=== PATIENT | male | born 1985 | race Caucasian/White ===

== ENCOUNTER 2017-06-13 13:32 | Emergency (ER) | payer OTHER ==
[~2017-06-13] VITALS: Ht 182.9 cm; Wt 113.4 kg
[2017-06-13] MEDS ORDERED: GABAPENTIN300 M2 PO (14:13)
[2017-06-13] MEDS ORDERED: KLONOPIN1 M1 PO (14:13)
--- NOTE | 2017-06-13 14:15 | ED PSYCHIATRIC COMPLAINT ---
History of Present Illness General Chief Complaint: Psychiatric Related Complaint Stated Complaint: BIBA ?ANXIETY Source: patient Exam Limitations: no limitations Vital Signs & Intake/Output Vital Signs & Intake/Output SEE TRIAGE Triage Nurses Notes Reviewed? yes HPI: Patient presents for evaluation of a panic attack that occurred about 60 minutes ago while he was at his in-laws place. Patient states that he and his have lost their current apartment and they have been sleeping in different places temporarily. Patient states that he is out of his medications for anxiety and PTSD because he is transitioning between providers. He denies SI or HI. He spoke with his therapist yesterday and has an appointment again today at 3:00. He does not wish to see the crisis clinicians but simply wishes to have his medications until he can be re-seen at [facility]. Past History Travel History Traveled to [place] past 21 day No Medical History Any Pertinent Medical History? see below for history Psychiatric: anxiety, PTSD Surgical History Surgical History: non-contributory Psychosocial History What is your primary language Swiss Illicit Drug Use: denies illicit drug use Family History Hx Contributory? No Review of Systems Review of Systems Constitutional: Reports: no symptoms. EENTM: Reports: no symptoms. Respiratory: Reports: no symptoms. Cardiovascular: Reports: no symptoms. GI: Reports: no symptoms. Genitourinary: Reports: no symptoms. Musculoskeletal: Reports: no symptoms. Skin: Reports: no symptoms. Neurological/Psychological: Reports: see HPI. Hematologic/Endocrine: Reports: no symptoms. Immunologic/Allergic: Reports: no symptoms. All Other Systems: Reviewed and Negative Physical Exam Physical Exam General Appearance: SEE BELOW Neurological/Psychiatric: SEE BELOW Comments: Gen.: Well-nourished, well-developed, no acute respiratory distress. Head: Normocephalic, atraumatic. Eyes: Normal inspection bilaterally Ears: Normal inspection bilaterally Nose: Normal inspection Throat/mouth : Moist mucosa Neck: Supple, full range of motion, no goiter Lungs: Quiet respirations Back: Normal range of motion Extremities: Normal range of motion grossly, no cyanosis clubbing or edema of the upper extremities Neurologic: Cranial nerves grossly intact, speech is clear Skin: warm and dry Psychiatric: Calm, cooperative, no apparent delusions or hallucinations SAD PERSONS Done? patient not suicidal Progress Differential Diagnosis: ANXIETY, BIPOLAR DISORDER, ptsd, adhd Plan of Care: Continue current medications, follow up with [facility] Departure Departure Disposition: HOME OR SELF CARE Condition: Stable Clinical Impression Primary Impression: Anxiety Referrals: Patient Has No Primary Care Dr (PCP/Family) Additional Instructions: Klonopin and gabapentin as prescribed for anxiety/PTSD. Follow-up with your therapist today as scheduled and with the [facility] program as soon as possible. Please follow-up with your primary care physician for general medical evaluation next week. If you do not currently have a primary care physician then please contact the [facility] at the following phone number: . Return if any concerns or sudden worsening. Departure Forms: Customer Survey General Discharge Information Prescriptions: Current Visit Scripts Clonazepam (Klonopin) 1 TAB PO TID PRN ANXIETY #9 TAB Gabapentin 1 CAP PO TID PRN ANXIETY #21 CAP
== END 2017-06-13 14:51 ==
LOC: ERH 13:32
DX: F41.9 Anxiety disorder, unspecified (principal)

== ENCOUNTER 2017-06-15 03:46 | Emergency (ER) | payer OTHER ==
[~2017-06-15] VITALS: Ht 180.3 cm; Wt 136.1 kg
[~2017-06-15 03:46] MED LIST: GABAPENTIN300 M2 PO; KLONOPIN1 M1 PO
[2017-06-15 04:00] VITALS: BP 124/84
--- NOTE | 2017-06-15 04:27 | ED ANKLE/FOOT INJURY COMPLAINT ---
History of Present Illness General Chief Complaint: Foot or Ankle Injury Stated Complaint: SPRAINED ANKLE Source: patient, old records Exam Limitations: no limitations Vital Signs & Intake/Output Vital Signs & Intake/Output Vital Signs Date Time Temp Pulse Resp B/P B/P Pulse O2 O2 Flow FiO2 Mean Ox Delivery Rate 06/15 0400 98.8 102 20 124/84 96 Room Air Room Air Allergies Coded Allergies: ondansetron (From ZOFRAN ( HYDROCHLORIDE)) (Mild, HIVES 06/15/17) Reconcile Medications Clonazepam (Klonopin) 1 MG TABLET 1 TAB PO TID PRN ANXIETY Gabapentin 300 MG CAPSULE 1 CAP PO TID PRN ANXIETY Ibuprofen 600 MG TABLET 1 TAB PO Q6P PRN pain with food Triage Note: 31YO MALE TO TRIAGE W/CO R ANKLE PAIN AND SWELLING SP FALL TONITE . STATES HE "TWISTED IT THEN FELL" ALSO STATES HE IS VERY ANXIOUS AND HIS "ANXIETY MEDICINE CLONAZEPAM WAS STOLEN FROM HIS BAG AND HAS NOT HAD ANY TODAY" Triage Nurses Notes Reviewed? yes Occurred: just prior to arrival Duration: minute(s):, constant, continues in ED Timing: recent history Severity: moderate, severe Pain/Injury Location: Right: Ankle. Method of Injury: twisted Modifying Factors: Improves With: immobilization, rest. Worsens With: movement. Associated Symptoms: swelling, GCS 15 since, stiffness HPI: Prior to admission patient missed a step and twisted his right ankle. He complains of lateral swelling increased pain with weightbearing limited range of motion. He denies other injury fever chills nausea vomiting diarrhea abdominal pain chest pain shortness breath headache dysuria rash bleeding. Past History Travel History Traveled to [place] past 21 day No Medical History Any Pertinent Medical History? 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 No Review of Systems Review of Systems Constitutional: Reports: no symptoms. EENTM: Reports: no symptoms. Respiratory: Reports: no symptoms. Cardiovascular: Reports: no symptoms. GI: Reports: no symptoms. Genitourinary: Reports: no symptoms. Musculoskeletal: Reports: see HPI, joint pain. Skin: Reports: no symptoms. Neurological/Psychological: Reports: no symptoms. Hematologic/Endocrine: Reports: no symptoms. Immunologic/Allergic: Reports: no symptoms. All Other Systems: Reviewed and Negative Physical Exam Physical Exam General Appearance: well developed/nourished, mild distress Head: atraumatic, normal appearance Eyes: Bilateral: normal appearance, PERRL, EOMI. Ears, Nose, Throat: normal pharynx, normal ENT inspection, hearing grossly normal Neck: normal inspection, supple, full range of motion, no midline tenderness Cardiovascular/Respiratory: normal breath sounds, normal peripheral pulses, regular rate/rhythm, no respiratory distress Back: normal inspection, normal range of motion Leg/Knee/Thigh Left: normal range of motion, normal inspection Leg/Knee/Thigh Right: normal range of motion, normal inspection Ankle Left: normal inspection, normal range of motion Ankle Right: soft tissue tenderness, swelling, tenderness, limited range of motion Foot Left: normal inspection, normal range of motion Foot Right: normal inspection, normal range of motion Reflexes: 2+: knee (R), knee (L). Neuro/Vascular: normal motor function, normal sensation Tendon: normal tendon function Psychiatric: awake, alert, oriented x 3 Skin: intact, normal color, warm/dry Progress Differential Diagnosis: fracture, sprain, contusion Plan of Care: Orders Procedure Date/time Status Durable Medical Equipment 06/15 522 Active Diagnostic Imaging: Viewed by Me: Radiology Read. Discussed w/RAD: Radiology Read. Radiology Impression: no acute abnormality, no fracture, no dislocation Departure Departure Time of Disposition: 522 Disposition: HOME OR SELF CARE Condition: Stable Clinical Impression Primary Impression: Right ankle sprain Referrals: Easton WILSON,Luis Segura (PCP/Family) Departure Forms: Customer Survey General Discharge Information Prescriptions: Current Visit Scripts Ibuprofen 1 TAB PO Q6P PRN pain #30 TAB with food
--- NOTE | 2017-06-15 05:12 | RADIOLOGY REPORT ---
EXAMINATION: XR ANKLE, RIGHT CLINICAL INFORMATION: Missed stair rolling right ankle. COMPARISON: None TECHNIQUE: AP, lateral, and mortise views of the right ankle. FINDINGS: There is no acute fracture or dislocation. Alignment is anatomic. No ankle joint effusion. The soft tissues are unremarkable. Achilles heel spur. IMPRESSION: No fracture or malalignment.
[2017-06-15] MEDS ORDERED: IBUPROFEN600 M1 PO ×2 (05:24→05:42)
== END 2017-06-15 06:00 ==
LOC: ERH 03:46
DX: S93.401A Sprain of unspecified ligament of right ankle, initial encounter (principal); X58.XXXA Exposure to other specified factors, initial encounter; Y92.9 Unspecified place or not applicable; Y93.9 Activity, unspecified
CPT/HCPCS: 73610-RT

== ENCOUNTER 2017-06-24 23:11 | Emergency (ER) | payer OTHER ==
[~2017-06-24] VITALS: Ht 180.3 cm; Wt 127.0 kg
[~2017-06-24 23:11] MED LIST changes: +IBUPROFEN600 M1 PO
--- NOTE | 2017-06-25 00:34 | RADIOLOGY REPORT ---
EXAMINATION: XR ANKLE, RIGHT CLINICAL INFORMATION: Right ankle pain. Reinjury. COMPARISON: 06/15/2017 TECHNIQUE: AP, lateral, and mortise views of the right ankle. FINDINGS: There is no acute fracture or dislocation. The ankle mortise is congruent. No ankle joint effusion. The soft tissues are unremarkable. Hypertrophic spurring at the Achilles insertion to the calcaneus. IMPRESSION: No fracture or malalignment. Achilles heel spur.
--- NOTE | 2017-06-25 00:37 | ED GENERAL ADULT ---
History of Present Illness General Chief Complaint: General Adult Stated Complaint: R ANKLE PAIN, REINJURED, LIGHTHEADED,LEFT EARLIER Source: patient Exam Limitations: no limitations Vital Signs & Intake/Output Vital Signs & Intake/Output ED Intake and Output 06/26 0000 06/25 1200 Intake Total Output Total Balance Patient 280 lb Weight Weight Reported by Patient Measurement Method Allergies Coded Allergies: ondansetron (From ZOFRAN ( HYDROCHLORIDE)) (Mild, HIVES 06/15/17) Reconcile Medications Clonazepam (Klonopin) 1 MG TABLET 1 TAB PO TID PRN ANXIETY Gabapentin 300 MG CAPSULE 1 CAP PO TID PRN ANXIETY Ibuprofen 800 MG TABLET 1 TAB PO TID PRN pain Ibuprofen 600 MG TABLET 1 TAB PO Q6P PRN pain with food Meclizine HCl 25 MG TABLET 1 TAB PO TIDPRN vertigo Promethazine HCl 25 MG TABLET 1 TAB PO Q6P PRN nausea Triage Note: TRIAGE: PATIENT TO ER FORM HOME REPORTS SEEN HERE 1 WEEK AGO S/P MECHANICAL FALL W/ R ANKLE SPRAIN. PATIENT NOW REPORTING S/P ANOTHER MECHANICAL FALL TONIGHT W/ R ANKLE "POPPED," 6/10 PAIN TO R ANKLE. REPORTS SIONCE THEN "BOTTOM OF FOOT NUMB, UNABLE TO EAT, LIGHTHEADED AND DIZZY. FEEL LIKE I'M GOING TO PASS OUT." EKG IN PROGRESS, LABS IN PROGRESS. Triage Nurses Notes Reviewed? yes Onset: Gradual Duration: day(s): Timing: recent history Injury Environment: home HPI: 31 yo melaniaman h/o right ankle injury presents with right ankle pain after an injury and also with vertigo. He notes that "I stepped down and rolled my right ankle again... It really hurts and is difficult to walk." He notes also that when he moves his head, he feels "like the world is spinning. " He notes also mild nausea, without vomiting, diarrhea, chills, dysuria. He is otherwise well. Past History Travel History Traveled to [place] past 21 day No Medical History Any Pertinent Medical History? 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 No Review of Systems Review of Systems Constitutional: Reports: no symptoms. EENTM: Reports: no symptoms. Respiratory: Reports: no symptoms. Cardiovascular: Reports: no symptoms. GI: Reports: no symptoms. Genitourinary: Reports: no symptoms. Musculoskeletal: Reports: no symptoms. Skin: Reports: no symptoms. Neurological/Psychological: Reports: no symptoms. Hematologic/Endocrine: Reports: no symptoms. Immunologic/Allergic: Reports: no symptoms. All Other Systems: Reviewed and Negative Physical Exam Physical Exam General Appearance: well developed/nourished, mild distress Head: atraumatic, normal appearance Eyes: Bilateral: normal appearance, PERRL, EOMI, other (no nystagmus). Ears, Nose, Throat: normal pharynx, normal ENT inspection Neck: normal inspection, supple, full range of motion Respiratory: normal breath sounds, chest non-tender, no respiratory distress, quiet respiration, lungs clear Cardiovascular: regular rate/rhythm Gastrointestinal: normal bowel sounds, soft, non-tender Back: normal inspection, normal range of motion Extremities: normal inspection, normal capillary refill, no edema, mild pain with palpation of right lateral malleolus. pain elicited with inversion of right ankle. Neurologic/Psych: no motor/sensory deficits, awake, alert, oriented x 3, vertigo elicited with head movement. Core Measures ACS in differential dx? No CVA/TIA Diagnosis: No Sepsis Present: No Sepsis Focused Exam Completed? No Progress Differential Diagnoses I considered the following diagnoses in my evaluation of the patient: ankle sprain vs fx positional vertigo vs dehydration. Plan of Care: Orders Procedure Date/time Status TROPONIN LEVEL 06/24 2325 Complete COMPREHENSIVE METABOLIC PANEL 06/24 2325 Complete CBC WITHOUT DIFFERENTIAL 06/24 2325 Complete EKG 06/24 2325 Active Laboratory Tests 06/25/17 0031: Anion Gap 14, Estimated GFR > 60, BUN/Creatinine Ratio 13.3, Glucose 103 H, Calcium 9.5, Total Bilirubin 0.8, AST 26, ALT 35, Alkaline Phosphatase 73, Troponin I < 0.01, Total Protein 7.4, Albumin 4.3, Globulin 3.1, Albumin/ Globulin Ratio 1.4, CBC w Diff NO MAN DIFF REQ, RBC 5.21, MCV 84.4, MCH 28.6, MCHC 33.9, RDW 14.1, MPV 9.7, Gran % 74.0, Lymphocytes % 19.0 L, Monocytes % 6.0, Eosinophils % 0.9, Basophils % 0.1, Absolute Granulocytes 9.8 H, Absolute Lymphocytes 2.5, Absolute Monocytes 0.8 H, Absolute Eosinophils 0.1, Absolute Basophils 0 Diagnostic Imaging: Viewed by Me: Radiology Read. Discussed w/RAD: Radiology Read. Radiology Impression: PATIENT: JOSE TUBBS PRESENT AGE: 31 PATIENT ACCOUNT NO: [id number] : 86 LOCATION: ER ORDERING PHYSICIAN: Juancarlos Vang MD SERVICE DATE: 06/25/17 EXAM TYPE: RAD - XRY-ANKLE 3 OR MORE VIEWS R EXAMINATION: XR ANKLE, RIGHT CLINICAL INFORMATION: Right ankle pain. Reinjury. COMPARISON: 06/15/2017 TECHNIQUE : AP, lateral, and mortise views of the right ankle. FINDINGS: There is no acute fracture or dislocation. The ankle mortise is congruent. No ankle joint effusion. The soft tissues are unremarkable. Hypertrophic spurring at the Achilles insertion to the calcaneus. IMPRESSION: No fracture or malalignment. Achilles heel spur. 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 <Electronically signed in Other Vendor System> SIGNED BY: Goldy Joseph MD 06/25/1733 Initial ED EKG: normal axis, normal intervals, normal p-waves, normal QRS complex, normal sinus rhythm Departure Departure Disposition: HOME OR SELF CARE Condition: Stable Clinical Impression Primary Impression: Vertigo Secondary Impressions: Heel spur, Right ankle sprain Referrals: [facility]on WILSON,Luis Segura (PCP/Family) Departure Forms: Customer Survey General Discharge Information Prescriptions: Current Visit Scripts Ibuprofen 1 TAB PO TID PRN pain #30 TAB Meclizine HCl 1 TAB PO TIDPRN #30 TAB Promethazine HCl 1 TAB PO Q6P PRN nausea #8 TAB Critical Care Note Critical Care Note Critical Care Time: non-applicable
[2017-06-25 00:48] LABS: ABSOLUTE BASOPHIL COUNT 0 /CUMM (0.0-0.2); ABSOLUTE EOSINOPHIL COUNT 0.1 /CUMM (0.0-0.7); ABSOLUTE GRANULOCYTE CT 9.8 /CUMM (1.4-6.5); ABSOLUTE LYMPH COUNT 2.5 /CUMM (1.2-3.4); ABSOLUTE MONOCYTE COUNT 0.8 /CUMM (0.10-0.60); BASOPHIL % 0.1 % (0.0-2.0); EOSINOPHIL % 0.9 % (0-5); MEAN CORPUSCULAR HGB 28.6 PG (27.0-31.0); MEAN CORPUSCULAR HGB CONC 33.9 G/DL (33.0-37.0); MEAN CORPUSCULAR VOLUME 84.4 FL (80.0-94.0); MEAN PLATELET VOLUME 9.7 FL (7.4-10.4); PLATELET COUNT 248 /CUMM (130-400); RBC DISTRIBUTION WIDTH 14.1 % (11.5-14.5); RED BLOOD CELL CT 5.21 /CUMM (4.70-6.10); WHITE BLOOD CELL COUNT 13.2 /CUMM (4.8-10.8)
[2017-06-25] MEDS ORDERED: IBUPROFEN800 M1 PO ×2 (01:22→04:51)
[2017-06-25] MEDS ORDERED: MECLIZINE HCL25 MG PO ×2 (01:22→04:51)
[2017-06-25] MEDS ORDERED: PROMETHAZINE HC25 M3 PO ×2 (01:22→04:51)
[2017-06-25 05:46] VITALS: BP 107/62
== END 2017-06-25 05:57 ==
LOC: ERH 23:11
PROVIDERS: Pediatrics
DX: S93.401A Sprain of unspecified ligament of right ankle, initial encounter (principal); M77.31 Calcaneal spur, right foot; R42 Dizziness and giddiness; X50.9XXA Other and unspecified overexertion or strenuous movements or postures, initial encounter; Y93.89 Activity, other specified; Y92.009 Unspecified place in unspecified non-institutional (private) residence as the place of occurrence of the external cause
CPT/HCPCS: 73610-RT; 93005; 93010; J2405

== ENCOUNTER 2017-07-03 17:03 | Emergency (ER) | payer OTHER ==
[~2017-07-03] VITALS: Ht 180.3 cm; Wt 127.0 kg
[~2017-07-03 17:03] MED LIST changes: +IBUPROFEN800 M1 PO; +MECLIZINE HCL25 MG PO; +PROMETHAZINE HC25 M3 PO
[2017-07-03 18:34] LABS: ABSOLUTE BASOPHIL COUNT 0.1 /CUMM (0.0-0.2); ABSOLUTE EOSINOPHIL COUNT 0.1 /CUMM (0.0-0.7); ABSOLUTE GRANULOCYTE CT 12.6 /CUMM (1.4-6.5); ABSOLUTE LYMPH COUNT 1.7 /CUMM (1.2-3.4); ABSOLUTE MONOCYTE COUNT 0.6 /CUMM (0.10-0.60); BASOPHIL % 0.4 % (0.0-2.0); EOSINOPHIL % 0.4 % (0-5); GRANULOCYTE % 83.4 % (42.2-75.2); HEMATOCRIT 45.9 % (42-52); MEAN CORPUSCULAR HGB 28.3 PG (27.0-31.0); MEAN CORPUSCULAR HGB CONC 33.5 G/DL (33.0-37.0); MEAN CORPUSCULAR VOLUME 84.5 FL (80.0-94.0); MEAN PLATELET VOLUME 9.8 FL (7.4-10.4); PLATELET COUNT 273 /CUMM (130-400); RBC DISTRIBUTION WIDTH 13.7 % (11.5-14.5); RED BLOOD CELL CT 5.43 /CUMM (4.70-6.10); WHITE BLOOD CELL COUNT 15.1 /CUMM (4.8-10.8)
--- NOTE | 2017-07-04 00:05 | CT SCAN REPORT ---
EXAMINATION: CT ABDOMEN AND PELVIS WITH CONTRAST CLINICAL INFORMATION: Pelvic pain COMPARISON: None TECHNIQUE: Multidetector volumetric imaging was performed of the abdomen and pelvis following IV administration of 95 mL of Optiray 320 intravenous contrast. Sagittal and coronal reformatted images were obtained on the technologist's workstation. DLP: 1697 mGy-cm FINDINGS: LUNG BASES: There is slight pleural thickening at the lung bases. LIVER, GALLBLADDER, AND BILIARY TREE: The liver is normal in size, shape, and attenuation. No focal hepatic lesion or biliary ductal dilatation is present. The gallbladder is unremarkable with no evidence of radiopaque gallstones, gallbladder wall thickening, or obvious pericholecystic inflammatory changes. PANCREAS: The pancreas is normal in appearance SPLEEN: Spleen is normal in size with no focal finding ADRENAL GLANDS: Normal KIDNEYS AND URETERS: The kidneys are normal in size with symmetric enhancement There is an exophytic cyst measuring 1 cm arising from the midpole of the left kidney. No other mass is defined. There is no intrarenal calculus. There is no hydronephrosis or hydroureter. No ureteral stone is defined. BLADDER: The urinary bladder is unremarkable GASTROINTESTINAL TRACT: There is no evidence for large or small bowel obstruction or acute inflammation. The appendix is normal in appearance. There is no diverticulitis. There is no free air, free fluid or loculated fluid collection in the abdomen . The rectum is unremarkable in appearance ABDOMINAL WALL: No significant hernia is appreciated. There is some mildly prominent vascular structures in the anterior abdominal wall which extend from the left inguinal region to the scrotum. These may be related to a varicocele LYMPH NODES: No bulky adenopathy is seen VASCULAR: The abdominal aorta and inferior vena cava are normal in appearance PELVIC VISCERA: There is no mass seen in the pelvis. Prostate gland is normal in size and unremarkable in appearance. Seminal vesicles are unremarkable in appearance OSSEOUS STRUCTURES: No acute bony abnormality is seen. IMPRESSION: No acute abnormality is seen in the CT scan of the abdomen and pelvis. There is a 1 cm cyst midpole left kidney. There are some superficial vascular structures in the anterior abdominal wall extending from the left inguinal region to the scrotum which could possibly be related to varicocele. These are of questionable clinical significance.
--- NOTE | 2017-07-04 00:23 | ED GI/GU/ABDOMINAL COMPLAINT ---
History of Present Illness General Chief Complaint: General Adult Stated Complaint: "?PROSTATE PAIN FROM ANXIETY" Source: patient Exam Limitations: no limitations Vital Signs & Intake/Output Vital Signs & Intake/Output Vital Signs Date Time Temp Pulse Resp B/P B/P Pulse O2 O2 Flow FiO2 Mean Ox Delivery Rate 07/04 0816 98.0 80 18 134/86 98 Room Air 07/04 0653 97.7 89 16 115/62 100 Room Air 07/04 0143 98.3 89 18 109/60 98 Room Air 07/03 2219 98.4 109 20 132/78 96 Room Air 07/03 1740 98.1 106 15 148/75 96 Room Air Room Air ED Intake and Output 07/04 0000 07/03 1200 Intake Total 0 Output Total Balance 0 Intake, Oral 0 Patient 280 lb Weight Weight Reported by Patient Measurement Method Allergies Coded Allergies: ondansetron (From ZOFRAN ( HYDROCHLORIDE)) (Mild, HIVES 07/03/17) Triage Note: PT TO ED FOR C/C OF "MY PROSTATE IS HURTING. I HAVE A HISTORY OF PROSTATITIS AND IT FEELS THE SAME. AND PAIN AT THE TIP OF MY PENIS." PT DENIES S/S AND ABD PAIN. Triage Nurses Notes Reviewed? yes Onset: Abrupt Duration: day(s): (3-4) Timing: remote history Quality/Severity: cramping, fullness Severity Numbers: 7 Location: PERINEAL AREA Radiation: no radiation Activities at Onset: none Prior Abdominal Problems: similar symptoms Sexually Active: Yes No Modifying Factors: none Modifying Factors: Worsens With: movement, palpation, other (URINATING). Associated Symptoms: abdominal pain, PERINEAL PAIN, ANXIETY, DYSURIA HPI: 31-year-old male past medical history of anxiety and PTSD presents for evaluation of increasing anxiety and for evaluation of prostatitis. Patient states that he was diagnosed with prostatitis past 6 months ago he's having similar symptoms today. He has pain in his perineal area. This started a few days ago. Described as pressure. He describes some difficulty when urinating and dysuria. No penile discharge. He is sexually active. He states that he had similar symptoms about 6 months ago was treated with antibiotics and Flomax. He denies abdominal pain, fever, frequency urgency, diarrhea, back pain chest pain shortness of breath. He also reports he has been having worsening anxiety. He is in between doctors and has not yet followed up. He is also not taking any medication currently. He denies any drug or alcohol use no hallucinations no suicidal or homicidal ideation. He is here requesting a psychiatric evaluation. (Abel Orellana) Reconcile Medications Clonazepam (Klonopin) 1 MG TABLET 1 TAB PO TID PRN ANXIETY Dextroamphetamine/Amphetamine (Adderall 10 MG Tablet) 10 MG TABLET 1 TAB PO TID ANXIETY (Reported) Doxycycline Hyclate 100 MG TABLET 1 TAB PO BID PROSTATITIS Gabapentin 300 MG CAPSULE 1 CAP PO TID PRN ANXIETY Ibuprofen 800 MG TABLET 1 TAB PO TID PRN pain Ibuprofen 600 MG TABLET 1 TAB PO Q6P PRN pain with food Meclizine HCl 25 MG TABLET 1 TAB PO TIDPRN vertigo Promethazine HCl 25 MG TABLET 1 TAB PO Q6P PRN nausea (Madhuri WILSON,Maurice) Past History Travel History Traveled to [place] past 21 day No Medical History Any Pertinent Medical History? 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 No (Abel Orellana) Review of Systems Review of Systems Constitutional: Reports: no symptoms. EENTM: Reports: no symptoms. Respiratory: Reports: no symptoms. Cardiovascular: Reports: no symptoms. GI: Reports: no symptoms. Genitourinary: Reports: see HPI, dysuria, pain. Musculoskeletal: Reports: no symptoms. Skin: Reports: no symptoms. Neurological/Psychological: Reports: anxiety. Hematologic/Endocrine: Reports: no symptoms. Immunologic/Allergic: Reports: no symptoms. All Other Systems: Reviewed and Negative (Abel Orellana) Physical Exam Physical Exam General Appearance: well developed/nourished, no apparent distress, alert, awake , anxious Head: atraumatic, normal appearance Eyes: Bilateral: normal appearance, PERRL, EOMI. Ears, Nose, Throat, Mouth: hearing grossly normal, moist mucous membrane Neck: normal inspection, supple, full range of motion Respiratory: normal breath sounds, chest non-tender, no respiratory distress, lungs clear Cardiovascular: regular rate/rhythm, normal peripheral pulses Peripheral Pulses: 2+ radial (R), 2+ radial (L) Gastrointestinal: normal bowel sounds, soft, non-tender, no organomegaly Male Genitals: normal genitalia, NO SCROTAL SWELLING. nO TENDERNESS TO PALPATION OF THE BILATERAL TESTICLES. tHERE IS SOME TENDERNESS TO PALPATION OF THE PERINEAL AREA. nO ERYTHEMA AND NO FOCAL FLUCTUANT AREAS Back: normal inspection, normal range of motion, no vertebral tenderness, NO cva TENDERNESS Extremities: normal range of motion Neurologic/Psych: no motor/sensory deficits, awake, alert, oriented x 3, normal gait Skin: intact, normal color, warm/dry Core Measures ACS in differential dx? No Sepsis Present: No Sepsis Focused Exam Completed? No (Ziggy JORDAN,Abel) Progress Differential Diagnosis: appendicitis, biliary colic, cholecystitis, diverticulitis, epididymitis, orchitis, prostatitis, pyelonephritis, SBO, testicular torsion, ureterolithiasis, urinary retention, urethritis, UTI/pyelo Plan of Care: Orders Procedure Date/time Status Regular Diet 07/04 B Active Add-on Test (ER Only) 07/04 0113 Active CULTURE,URINE 07/04 0002 Active Add-on Test (ER Only) 07/03 2303 Active URINE DRUG SCREEN FOR ER ONLY 07/03 2303 Complete ED CRISIS PSYCH CONSULT 07/03 2303 Active ETHANOL 07/03 1813 Complete COMPREHENSIVE METABOLIC PANEL 07/03 1743 Complete CBC WITHOUT DIFFERENTIAL 07/03 1743 Complete CHLAMYDIA-GC DNA PROBE 07/03 1742 Active URINALYSIS 07/03 1741 Complete Current Medications Sig/Bernice Start time Last Medication Dose Stop Time Status Admin Lorazepam 1 MG Q6P PRN 07/04 0145 AC 07/04 (Ativan) 0151 Laboratory Tests 07/04/17 0002: Urine Opiates Screen < 100, Methadone Screen < 40, Barbiturate Screen < 60, Ur Phencyclidine Scrn < 6.00, Amphetamines Screen 104, U Benzodiazepines Scrn < 85, Urine Cocaine Screen < 50, Urine Cannabis Screen > 80.00 H, Urinalysis LIGHT H , Urine Color YEL, Urine Clarity CLEAR, Urine pH 6.5, Ur Specific [place] <= 1.005, Urine Protein NEG, Urine Ketones 40 H, Urine Nitrite NEG, Urine Bilirubin NEG, Urine Urobilinogen 0.2, Ur Leukocyte Esterase NEG, Ur Microscopic SEDIMENT EXAMINED, Urine RBC 1-3, Urine Hemoglobin TRACE-LYSED H, Urine Glucose NEG 07/03/171812: Anion Gap 14, Estimated GFR > 60, BUN/Creatinine Ratio 12.0, Glucose 95, Calcium 9.7, Total Bilirubin 0.9, AST 26, ALT 29, Alkaline Phosphatase 79, Total Protein 8.0, Albumin 4.8, Globulin 3.2, Albumin/Globulin Ratio 1.5, CBC w Diff NO MAN DIFF REQ, RBC 5.43, MCV 84.5, MCH 28.3, MCHC 33.5, RDW 13.7, MPV 9.8, Gran % 83.4 H, Lymphocytes % 11.5 L, Monocytes % 4.3, Eosinophils % 0.4, Basophils % 0.4, Absolute Granulocytes 12.6 H, Absolute Lymphocytes 1.7, Absolute Monocytes 0.6, Absolute Eosinophils 0.1, Absolute Basophils 0.1, Serum Alcohol < 10.0 Microbiology 07/04 1 URINE ROUT: Urine Culture - RECD 07/04 1 URINE ROUT: GC DNA Probe - RECD 07/04 1 URINE ROUT: Chlamydia DNA Probe (CINTHIA) - RECD Patient seen and evaluated. He is reporting pain in his perineal area. There is no evidence of erythema no focal fluctuant areas or discharge. He also reports dysuria and difficulty urinating. He is been diagnosed with prostatitis in the past. Feels like his current symptoms are similar. He is afebrile his abdomen is soft and nontender. He is able to urinate. CT scan, pelvis does not show any acute findings. He does have an elevated white blood cell count of 15, 000. Urine does not show signs of infection gonorrhea clarity testing ordered. Patient be covered with ceftriaxone and Zithromax for empiric treatment. He'll also be given a dose of Flomax. Patient was medicated with lorazepam in the emergency department for anxiety. He is requesting a psychiatric evaluation for further evaluation of intense anxiety. He is not suicidal or homicidal no hallucinations. Patient signout to Dr. Vang pending crisis evaluation Diagnostic Imaging: Viewed by Me: CT Scan. Discussed w/RAD: CT Scan. Radiology Impression: PATIENT: JOSE TUBBS PRESENT AGE: 31 PATIENT ACCOUNT NO: [id number] : 86 LOCATION: [facility] ORDERING PHYSICIAN: Abel JORDAN SERVICE DATE: 07/03/17 EXAM TYPE: CAT - CT ABD & PELVIS W IV CONTRAST EXAMINATION: CT ABDOMEN AND PELVIS WITH CONTRAST CLINICAL INFORMATION: Pelvic pain COMPARISON: None TECHNIQUE: Multidetector volumetric imaging was performed of the abdomen and pelvis following IV administration of 95 mL of Optiray 320 intravenous contrast. Sagittal and coronal reformatted images were obtained on the technologist's workstation. DLP: 1697 mGy-cm FINDINGS: LUNG BASES: There is slight pleural thickening at the lung bases. LIVER, GALLBLADDER, AND BILIARY TREE: The liver is normal in size, shape, and attenuation. No focal hepatic lesion or biliary ductal dilatation is present. The gallbladder is unremarkable with no evidence of radiopaque gallstones, gallbladder wall thickening, or obvious pericholecystic inflammatory changes. PANCREAS: The pancreas is normal in appearance SPLEEN: Spleen is normal in size with no focal finding ADRENAL GLANDS: Normal KIDNEYS AND URETERS: The kidneys are normal in size with symmetric enhancement There is an exophytic cyst measuring 1 cm arising from the midpole of the left kidney. No other mass is defined. There is no intrarenal calculus. There is no hydronephrosis or hydroureter. No ureteral stone is defined. BLADDER: The urinary bladder is unremarkable GASTROINTESTINAL TRACT: There is no evidence for large or small bowel obstruction or acute inflammation. The appendix is normal in appearance. There is no diverticulitis. There is no free air, free fluid or loculated fluid collection in the abdomen . The rectum is unremarkable in appearance ABDOMINAL WALL: No significant hernia is appreciated. There is some mildly prominent vascular structures in the anterior abdominal wall which extend from the left inguinal region to the scrotum. These may be related to a varicocele LYMPH NODES : No bulky adenopathy is seen VASCULAR: The abdominal aorta and inferior vena cava are normal in appearance PELVIC VISCERA: There is no mass seen in the pelvis. Prostate gland is normal in size and unremarkable in appearance. Seminal vesicles are unremarkable in appearance OSSEOUS STRUCTURES: No acute bony abnormality is seen. IMPRESSION: No acute abnormality is seen in the CT scan of the abdomen and pelvis. There is a 1 cm cyst midpole left kidney. There are some superficial vascular structures in the anterior abdominal wall extending from the left inguinal region to the scrotum which could possibly be related to varicocele. These are of questionable clinical significance. DICTATED BY: Fariba Almanzar MD DATE/TIME DICTATED:07/03/172350 SENIOR PACKAGING ENGINEER: OFE DATE/TIME TRANSCRIBED:07/03/172350 CONFIDENTIAL, DO NOT COPY WITHOUT APPROPRIATE AUTHORIZATION. Initial ED EKG: none (Abel Orellana) Hand-Off Endorsed To: Maurice Dhaliwal MD Endorsed Time: 0700 Pending: consult, other (crises) (Juancarlos Vang MD) Comments: Patient declines waitng for crisis evaluation. (Maurice Dhaliwal MD) Departure Departure Condition: Stable Clinical Impression Primary Impression: Perineal pain Secondary Impressions: Anxiety Referrals: Luis Mccormack MD, V. (PCP/Family) Departure Forms: Customer Survey General Discharge Information (Abel Orellana) Departure Prescriptions: Current Visit Scripts Doxycycline Hyclate 1 TAB PO BID #20 TAB PA/OUTSOLE MOLDER Co-Sign Statement Statement: ED Attending supervision documentation- [x] I saw and evaluated the patient. I have also reviewed all the pertinent lab results and diagnostic results. I agree with the findings and the plan of care as documented in the PA's/OUTSOLE MOLDER's documentation. [] I have reviewed the ED Record and agree with the PA's/OUTSOLE MOLDER's documentation. [] Additions or exceptions (if any) to the PAs/OUTSOLE MOLDER's note and plan are summarized below: [] (Juancarlos Vang MD) Departure Time of Disposition: 1007 Disposition: HOME OR SELF CARE PA/OUTSOLE MOLDER Co-Sign Statement Statement: ED Attending supervision documentation- x I saw and evaluated the patient. I have also reviewed all the pertinent lab results and diagnostic results. I agree with the findings and the plan of care as documented in the PA's/OUTSOLE MOLDER's documentation. [] I have reviewed the ED Record and agree with the PA's/OUTSOLE MOLDER's documentation. [] Additions or exceptions (if any) to the PAs/OUTSOLE MOLDER's note and plan are summarized below: [] (Maurice Dhaliwal MD)
[2017-07-04] MEDS ORDERED: DOXYCYCLINE HY100 M4 PO (01:51)
[2017-07-04] MEDS ORDERED: ADDERALL 10 MG10 MG PO (10:13)
[2017-07-04] MEDS ORDERED: ZOLOFT100 M1 PO (10:14)
[2017-07-04] MEDS ORDERED: VALIUM10 M1 PO (10:14)
[2017-07-04] MEDS ORDERED: FLOMAX0.4 M1 PO (10:20)
[2017-07-04] MEDS ORDERED: BACTRIM DS TAB1 EACH PO (10:20)
[2017-07-04 10:27] VITALS: BP 146/72
== END 2017-07-04 10:29 ==
LOC: ERH 17:03
PROVIDERS: Physician Assistant Medical
DX: R10.2 Pelvic and perineal pain (principal); F41.9 Anxiety disorder, unspecified
CPT/HCPCS: 74177; 80307; 81001; 87086; 87491; 87591; 96361; 96374; 96375; G0480; J0696; J1885

== ENCOUNTER 2017-07-03 21:20 | Emergency (ER) | payer OTHER ==
[2017-07-04] MEDS ORDERED: DOXYCYCLINE HY100 M4 PO (01:51)
[2017-07-04] MEDS ORDERED: ADDERALL 10 MG10 MG PO (10:13)
[2017-07-04] MEDS ORDERED: VALIUM10 M1 PO (10:14)
[2017-07-04] MEDS ORDERED: ZOLOFT100 M1 PO (10:14)
[2017-07-04] MEDS ORDERED: BACTRIM DS TAB1 EACH PO (10:20)
[2017-07-04] MEDS ORDERED: FLOMAX0.4 M1 PO (10:20)
[2017-07-19] MEDS ORDERED: KLONOPIN1 M1 PO (12:03)
[2017-07-28] MEDS ORDERED: PERCOCET 5-3251 EACH PO (21:37)
[2017-08-15] MEDS ORDERED: BUTALB-ACETAMI1 EACH PO (04:21)
[2017-09-03] MEDS ORDERED: REGLAN10 M1 PO (14:15)
[2017-09-03] MEDS ORDERED: ENDOCET 5-3251 EACH PO (14:15)
[2017-09-25] MEDS ORDERED: ADVIL LIQUI-GE200 M1 PO (16:31)
[2017-09-25] MEDS ORDERED: ATIVAN1 M1 PO (17:30)
[2017-09-25] MEDS ORDERED: REGLAN10 M1 PO (17:30)
== END 2017-07-03 21:45 | disposition admitted as inpatient to this hospital (09) ==
LOC: ERH 21:20
DX: R10.2 Pelvic and perineal pain (principal); F41.9 Anxiety disorder, unspecified

== ENCOUNTER 2017-07-09 11:27 | Emergency (ER) | payer OTHER ==
[~2017-07-09] VITALS: Ht 180.3 cm; Wt 127.0 kg
[~2017-07-09 11:27] MED LIST changes: +ADDERALL 10 MG10 MG PO; +BACTRIM DS TAB1 EACH PO; +DOXYCYCLINE HY100 M4 PO; +FLOMAX0.4 M1 PO; +VALIUM10 M1 PO; +ZOLOFT100 M1 PO
--- NOTE | 2017-07-09 11:59 | ED GI/GU/ABDOMINAL COMPLAINT ---
History of Present Illness General Chief Complaint: Male Genitourinary Problems Stated Complaint: DX PROSTATITIS, NO IMPROVMENT Source: patient, old records Exam Limitations: no limitations Vital Signs & Intake/Output Vital Signs & Intake/Output Vital Signs Date Time Temp Pulse Resp B/P B/P Pulse O2 O2 Flow FiO2 Mean Ox Delivery Rate 07/09 1413 98.0 74 16 127/65 94 Room Air 07/09 1306 97.0 70 18 107/61 94 Room Air 07/09 1231 144/70 07/09 1145 98.2 102 18 150/81 98 Room Air Allergies Coded Allergies: ondansetron (From ZOFRAN ( HYDROCHLORIDE)) (Mild, HIVES 07/03/17) Reconcile Medications [0] 0 henrique villanueva was seen in this er on 07/09/17; and is unable to walk long distances Clonazepam (Klonopin) 1 MG TABLET 1 TAB PO TID PRN ANXIETY Clotrimazole/Betamethasone Dip (Clotrimazole-Betamethasone Crm) 1 %-0.05 % CREAM..G. 1 DENILSON TOP BID balanitis apply to affected area(s) Dextroamphetamine/Amphetamine (Adderall 10 MG Tablet) 10 MG TABLET 1 TAB PO TID ADHD (Reported) Diazepam (Valium) 10 MG TABLET 1 TAB PO BIDP PRN ANXIETY (Reported) Gabapentin 300 MG CAPSULE 1 CAP PO TID PRN ANXIETY Ibuprofen 800 MG TABLET 1 TAB PO TID PRN pain Oxycodone HCl/Acetaminophen (Percocet 5-325 MG Tablet) 5 MG-325 MG TABLET 1 TAB PO BID PRN pain Sertraline HCl (Zoloft) 100 MG TABLET 1 TAB PO DAILY PTSD (Reported) Sulfamethoxazole/Trimethoprim (Bactrim Ds Tablet) 800 MG-160 MG TABLET 1 TAB PO BID prostatitis Tamsulosin HCl (Flomax) 0.4 MG CAP.ER.24H 1 CAP PO DAILY prostatitis Triage Note: PT TO ER C/C WORSENING SYMPTOMS S/P PROSTATITIS DIAGNOSIS 1 WEEK AGO. CURRENTLY TAKING MOTRIN, FLOMAX AND BACTRIM PRESCRIBED. AFEBILE. +DYSURIA. PT C/O BURNING/ITCHING TO PENIS. Triage Nurses Notes Reviewed? yes Onset: Abrupt Duration: week(s): (1), constant Timing: recent history Quality/Severity: aching, burning Severity Numbers: 7 Location: suprapubic, urethral Radiation: no radiation Activities at Onset: none Prior Abdominal Problems: similar symptoms No Modifying Factors: none Associated Symptoms: denies HPI: 31-year-old male with history of anxiety PTSD previous prostatitis presents the ER for evaluation complaining of persistent symptoms attributed to his prostatitis. He was here 5 days ago for the same is currently taking Bactrim Motrin Flomax. He reports no dysuria urgency frequency as well as itching to the tip of his penis. He denies any discharge hematuria or blood with ejaculation. His last episode of prostatitis was about 6 months ago for which he is on antibiotics and resolved. He denies abdominal pain nausea vomiting back pain fever or chills at home Past History Travel History Traveled to [place] past 21 day No Medical History Any Pertinent Medical History? 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 No Review of Systems Review of Systems Constitutional: Reports: see HPI. Comments Review of systems: See HPI, All other systems negative. Constitutional, no chills no fever, HEENT: no sore throat no congestion Cardiovascular: No chest pain Skin: no rashes, no change in skin Respiratory: No dyspnea no cough no sputum GI: No nausea no vomiting, no diarrhea, no bloating/constipation : see hpi Muscle skeletal: No joint pain, no back pain Neurologic: , no headache Heme/endocrine: No bruising Physical Exam Physical Exam General Appearance: well developed/nourished, no apparent distress, alert Gastrointestinal: soft Comments: Well-developed well-nourished person in no acute distress HEENT: Normal EENT exam; PERRL, EOMI, HEAD is atraumatic. moist mucous membranes. Neck: Supple, normal range of motion Back: Nontender, no CVA tenderness. Full range of motion Cardiovascular: Regular rate and rhythms no murmurs rub Respiratory: Chest nontender.There were no bony deformities, no asymmetry. No respiratory distress. Patient speaking in full complete sentences. Breath sounds clear to auscultation bilaterally: NO W/R/R Abdomen: Soft, obese nontender nondistended, no appreciable organomegaly. Normal bowel sounds. No rebound/guarding, No appreciable enlargement of the abdominal aorta, No ascites. Male : Normal external genitalia, testes nontender. No scrotal swelling or mases, No lesions/discharge. no rash, pernieum is soft, nonteder, no swelling no erythema, no induration or fluctuance Extremity: No edema, full range of motion of extremities Neuro: Alert oriented x3, motor sensory normal, There were no obvious focal neurologic abnormalities. Skin: No appreciable rash on exposed skin, skin is warm and dry. Psych: Mood and affect is normal, memory and judgment is normal. Core Measures ACS in differential dx? No Sepsis Present: No Sepsis Focused Exam Completed? No Progress Differential Diagnosis: epididymitis, prostatitis, pyelonephritis, STD, urethritis, UTI/pyelo Plan of Care: Orders Procedure Date/time Status Regular Diet 07/09 D Active CULTURE,URINE 07/09 1206 Active BLOOD CULTURE 07/09 1206 Active URINALYSIS 07/09 1206 Complete COMPREHENSIVE METABOLIC PANEL 07/09 1206 Complete CBC WITHOUT DIFFERENTIAL 07/09 1206 Complete Laboratory Tests 07/09/17 1300: Urinalysis LIGHT H, Urine Color YEL, Urine Clarity CLEAR, Urine pH 6.0, Ur Specific [place] 1.025, Urine Protein NEG, Urine Ketones NEG, Urine Nitrite NEG, Urine Bilirubin NEG, Urine Urobilinogen 0.2, Ur Leukocyte Esterase NEG, Ur Microscopic SEDIMENT EXAMINED, Urine RBC 3-5, Urine WBC 1-3 H, Ur Epithelial Cells RARE, Urine Bacteria RARE H, Urine Mucus MANY H, Urine Hemoglobin TRACE- LYSED H, Urine Glucose NEG 07/09/17 1215: Anion Gap 9, Estimated GFR > 60, BUN/Creatinine Ratio 12.2, Glucose 88, Calcium 9.2, Total Bilirubin 0.5, AST 22, ALT 28, Alkaline Phosphatase 69, Total Protein 6.9, Albumin 4.0, Globulin 2.9, Albumin/Globulin Ratio 1.4, CBC w Diff NO MAN DIFF REQ, RBC 4.88, MCV 84.2, MCH 29.1, MCHC 34.6, RDW 13.9, MPV 9.5, Gran % 75.2, Lymphocytes % 16.4 L, Monocytes % 5.5, Eosinophils % 2.6, Basophils % 0.3 , Absolute Granulocytes 9.5 H, Absolute Lymphocytes 2.1, Absolute Monocytes 0.7 H, Absolute Eosinophils 0.3, Absolute Basophils 0 Microbiology 07/09 1300 URINE ROUT: Urine Culture - RECD 07/09 1230 BLOOD: Blood Culture - RECD 07/09 1215 BLOOD: Blood Culture - RECD Old records including the patient's CAT scan from earlier this week was reviewed labs were reviewed. Medicated with morphine IV IV fluids. Patient's urine culture and GC swabs were reviewed which were both showing no growth Case discussed with Dr. Farmer agrees with plan I discussed with the patient at length his labs plan of care, patient is nontoxic appearing afebrile I discussed with him need and importance of close follow-up with urology. Return precautions were discussed at length he feels comfortable plan cleared for discharge Initial ED EKG: none Departure Departure Time of Disposition: 1401 Disposition: HOME OR SELF CARE Condition: Stable Clinical Impression Primary Impression: Acute prostatitis Referrals: John WILSON,Vikram Unknown (PCP/Family) Additional Instructions: Follow up with urologist dr mary tomorrow. continue taking the doxycycline antibiotic as prescribed. percocet for breakthrough pain- this is a narcotic and can make you drowsy. clotrimazole cream as discussed. continue taking the flomax as directed. return with any concerns Departure Forms: Customer Survey General Discharge Information Prescriptions: Current Visit Scripts Clotrimazole/Betamethasone Dip (Clotrimazole-Betamethasone Crm) 1 DENILSON TOP BID #15 GM apply to affected area(s) Oxycodone HCl/Acetaminophen (Percocet 5-325 MG Tablet) 1 TAB PO BID PRN pain #10 TAB [0] 0
[2017-07-09 12:58] LABS: ABSOLUTE BASOPHIL COUNT 0 /CUMM (0.0-0.2); ABSOLUTE EOSINOPHIL COUNT 0.3 /CUMM (0.0-0.7); ABSOLUTE GRANULOCYTE CT 9.5 /CUMM (1.4-6.5); ABSOLUTE LYMPH COUNT 2.1 /CUMM (1.2-3.4); ABSOLUTE MONOCYTE COUNT 0.7 /CUMM (0.10-0.60); BASOPHIL % 0.3 % (0.0-2.0); EOSINOPHIL % 2.6 % (0-5); GRANULOCYTE % 75.2 % (42.2-75.2); HEMATOCRIT 41.1 % (42-52); MEAN CORPUSCULAR HGB 29.1 PG (27.0-31.0); MEAN CORPUSCULAR HGB CONC 34.6 G/DL (33.0-37.0); MEAN CORPUSCULAR VOLUME 84.2 FL (80.0-94.0); MEAN PLATELET VOLUME 9.5 FL (7.4-10.4); PLATELET COUNT 218 /CUMM (130-400); RBC DISTRIBUTION WIDTH 13.9 % (11.5-14.5); RED BLOOD CELL CT 4.88 /CUMM (4.70-6.10); WHITE BLOOD CELL COUNT 12.6 /CUMM (4.8-10.8)
[2017-07-09] MEDS ORDERED: PERCOCET 5-3251 EACH PO (14:02)
[2017-07-09] MEDS ORDERED: CLOTRIMAZOLE-BE15 GM TOP (14:02)
[2017-07-09] MEDS ORDERED: 0 ×2 (14:03→14:04)
[2017-07-09 14:13] VITALS: BP 127/65
[2017-07-19] MEDS ORDERED: KLONOPIN1 M1 PO (12:03)
[2017-07-28] MEDS ORDERED: PERCOCET 5-3251 EACH PO (21:37)
[2017-08-15] MEDS ORDERED: BUTALB-ACETAMI1 EACH PO (04:21)
[2017-09-03] MEDS ORDERED: ENDOCET 5-3251 EACH PO (14:15)
[2017-09-03] MEDS ORDERED: REGLAN10 M1 PO (14:15)
[2017-09-25] MEDS ORDERED: ADVIL LIQUI-GE200 M1 PO (16:31)
[2017-09-25] MEDS ORDERED: ATIVAN1 M1 PO (17:30)
[2017-09-25] MEDS ORDERED: REGLAN10 M1 PO (17:30)
== END 2017-07-09 14:17 ==
LOC: ERH 11:27
PROVIDERS: Physician Assistant Medical
DX: N41.0 Acute prostatitis (principal)
CPT/HCPCS: 81001; 87040; 87086; 96361; 96374; 96375; J1200

== ENCOUNTER 2017-07-24 11:17 | Emergency (ER) | payer OTHER ==
[~2017-07-24] VITALS: Ht 180.3 cm; Wt 127.0 kg
[~2017-07-24 11:17] MED LIST changes: +0; +CLOTRIMAZOLE-BE15 GM TOP; +PERCOCET 5-3251 EACH PO
--- NOTE | 2017-07-24 12:13 | ED GI/GU/ABDOMINAL COMPLAINT ---
History of Present Illness General Chief Complaint: General Adult Stated Complaint: GENERAL WEAKNESS Source: patient Exam Limitations: no limitations Vital Signs & Intake/Output Vital Signs & Intake/Output Vital Signs Date Time Temp Pulse Resp B/P B/P Pulse O2 O2 Flow FiO2 Mean Ox Delivery Rate 07/24 1439 97.5 88 18 114/69 100 07/24 1122 97.9 121 18 139/86 96 Room Air ED Intake and Output 07/25 0000 07/24 1200 Intake Total 0 Output Total Balance 0 Intake, Oral 0 Patient 280 lb Weight Weight Reported by Patient Measurement Method Allergies Coded Allergies: ondansetron (From ZOFRAN ( HYDROCHLORIDE)) (Mild, HIVES 07/03/17) Reconcile Medications Ciprofloxacin HCl (Cipro) 500 MG TABLET 1 TAB PO BID VARICOCELE Clonazepam (Klonopin) 1 MG TABLET 1 TAB PO BIDP PRN ANXIETY Clotrimazole/Betamethasone Dip (Clotrimazole-Betamethasone Crm) 1 %-0.05 % CREAM..G. 1 DENILSON TOP BID balanitis apply to affected area(s) Dextroamphetamine/Amphetamine (Adderall 10 MG Tablet) 10 MG TABLET 1 TAB PO TID ADHD (Reported) Diazepam (Valium) 10 MG TABLET 1 TAB PO BIDP PRN ANXIETY (Reported) Gabapentin 300 MG CAPSULE 1 CAP PO TID PRN ANXIETY Ibuprofen 800 MG TABLET 1 TAB PO TID PAIN Ibuprofen 800 MG TABLET 1 TAB PO TID PRN pain Oxycodone HCl/Acetaminophen (Percocet 5-325 MG Tablet) 5 MG-325 MG TABLET 1 TAB PO BID PRN pain Oxycodone HCl/Acetaminophen (Percocet 5-325 MG Tablet) 5 MG-325 MG TABLET 1 TAB PO BID PRN PAIN Promethazine HCl 25 MG TABLET 1 TAB PO Q6P PRN NAUSEA Sertraline HCl (Zoloft) 100 MG TABLET 1 TAB PO DAILY PTSD (Reported) Tamsulosin HCl (Flomax) 0.4 MG CAP.ER.24H 1 CAP PO DAILY prostatitis Triage Note: PT TO ER C/C WEAKNESS, NEAR-SYNCOPE X 1 DAY. PT STATES WAS LEAVING THE GYM AND THE CLINICAL RN LIAISON STARTED PULLING AWAY WITH ONE LEG IN AND ONE LEG OUT OF THE CAR "STRETCHING MY INJURED AREA". HX OF PROSTATITIS, HAS BEEN ON ABX X ABOUT 1 MONTH. Triage Nurses Notes Reviewed? yes Onset: Abrupt Duration: hour(s):, constant, continues in ED Timing: single episode today Quality/Severity: moderate, sharpness, severe Location: groin, scrotal Radiation: no radiation Activities at Onset: none Prior Abdominal Problems: none No Modifying Factors: none HPI: 31-year-old male with a history of prostatitis comes in with scrotal and groin pain. Patient was seen here recently and put on oral antibiotics. Patient reports that he still has 2 days' worth. He reports that he was getting into the car the other night and the person took off before he was in all the way and he felt some pain in his groin and testicle area. He has had increased pain since then and comes in for further evaluation. Eyes any fever chills vomiting. Reports some dysuria. There is no ejection from the car. Patient did not fall and hit his head. No trauma anywhere else. He reports that he gets significant pain. He's had some episodes were he reports that he feels like he is going to pass out like his blood pressure drops. (Isai Morrison) Past History Travel History Traveled to [place] past 21 day No Medical History Any Pertinent Medical History? 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 No (Isai Morrison) Review of Systems Review of Systems Constitutional: Reports: no symptoms. EENTM: Reports: no symptoms. Respiratory: Reports: no symptoms. Cardiovascular: Reports: no symptoms. GI: Reports: see HPI. Genitourinary: Reports: see HPI. Musculoskeletal: Reports: see HPI. Skin: Reports: no symptoms. Neurological/Psychological: Reports: no symptoms. Hematologic/Endocrine: Reports: no symptoms. Immunologic/Allergic: Reports: no symptoms. All Other Systems: Reviewed and Negative (Isai Morrison) Physical Exam Physical Exam General Appearance: well developed/nourished, alert, awake, mild distress Head: atraumatic, normal appearance Eyes: Bilateral: normal appearance. Ears, Nose, Throat, Mouth: hearing grossly normal, moist mucous membrane Neck: normal inspection Respiratory: no respiratory distress Cardiovascular: regular rate/rhythm Gastrointestinal: soft, tenderness, pelvic region, no guarding, no rebound tenderness Male Genitals: normal genitalia, scrotum tenderness (R), scrotum tenderness (L) Back: normal inspection Extremities: normal range of motion Neurologic/Psych: awake, alert, oriented x 3, normal gait, normal mood/affect Skin: intact, normal color Core Measures ACS in differential dx? Yes Sepsis Present: No Sepsis Focused Exam Completed? No ([place] JORDAN,Isai) Progress Differential Diagnosis: STD, testicular torsion, ureterolithiasis, urinary retention, urethritis, epididymitis, muscle strain, fracture,, Cardiac arrhythmia, OR, vasovagal, valvular abnormality, electrolyte imbalance Plan of Care: Orders Procedure Date/time Status Regular Diet 07/24 D Active Add-on Test (ER Only) 07/24 1851 Active TROPONIN LEVEL 07/24 1240 Complete URINALYSIS 07/24 1213 Complete COMPREHENSIVE METABOLIC PANEL 07/24 1213 Complete CBC WITHOUT DIFFERENTIAL 07/24 1213 Complete EKG 07/24 1123 Active Laboratory Tests 07/24/17 1414: Urine Color YEL, Urine Clarity CLEAR, Urine pH 6.0, Ur Specific [place] 1.020, Urine Protein NEG, Urine Ketones NEG, Urine Nitrite NEG, Urine Bilirubin NEG, Urine Urobilinogen 0.2, Ur Leukocyte Esterase NEG, Ur Microscopic SEDIMENT EXAMINED, Urine RBC RARE, Urine WBC RARE, Ur Epithelial Cells FEW, Urine Bacteria FEW H, Urine Mucus MOD H, Urine Hemoglobin TRACE-INTACT H, Urine Glucose NEG 07/24/17 1240: Anion Gap 13, Estimated GFR > 60, BUN/Creatinine Ratio 11.1, Glucose 98, Calcium 9.5, Total Bilirubin 0.7, AST 33, ALT 45, Alkaline Phosphatase 73, Troponin I < 0.01, Total Protein 7.1, Albumin 4.3, Globulin 2.8, Albumin/Globulin Ratio 1.5, CBC w Diff NO MAN DIFF REQ, RBC 5.26, MCV 84.7, MCH 28.8, MCHC 34.0, RDW 14.0, MPV 8.8, Gran % 67.6, Lymphocytes % 22.7, Monocytes % 7.9, Eosinophils % 1.0, Basophils % 0.8, Absolute Granulocytes 8.5 H, Absolute Lymphocytes 2.9, Absolute Monocytes 1.0 H, Absolute Eosinophils 0.1, Absolute Basophils 0.1 Diagnostic Imaging: Viewed by Me: CT Scan, Ultrasound. Discussed w/RAD: CT Scan, Ultrasound. Radiology Impression: PATIENT: JOSE TUBBS PRESENT AGE: 31 PATIENT ACCOUNT NO: [id number] : 86 LOCATION: [facility] ORDERING PHYSICIAN: Isai JORDAN SERVICE DATE: 07/24/17 EXAM TYPE : US - US-TESTICULAR Addendum: Findings were discussed with Isai Weir MD at 2:25 PM on 07/24/2017 Addendum Signed by: Lan Sanchez MD 07/24/17 142 US SCROTUM CLINICAL INFORMATION: Testicle pain. COMPARISON: Pelvic CT the same day TECHNIQUE: A sonogram of the scrotum was performed assessing chu-scale appearance and color Doppler flow. Spectral analysis and Doppler interrogation was performed. FINDINGS: RIGHT: Right testicle measures 3.6 x 2.3 x 3.5 cm, volume 20.6 mL. Parenchymal echotexture is normal. No focal testicular parenchymal lesions are visualized. Normal symmetric intratesticular flow is visualized. Normal arterial and venous waveforms. Right epididymal head is normal in size. No right hydrocele or varicocele is seen. LEFT: Left testicle measures 3.3 x 2.2 x 3.2 cm, volume 16.5 mL. Parenchymal echotexture is normal. No focal testicular parenchymal lesions are visualized. Normal symmetric intratesticular flow is visualized. Normal arterial and venous waveforms. Left epididymal head is normal in size. Left-sided varicocele. Some of these engorged veins do not exhibit color Doppler fill in which may be attributable to slow flow within the varicocele or varicocele thrombosis. Recommend correlation for any tenderness/soft tissue nodularity in this area. No hydrocele. IMPRESSION: - Left-sided varicocele. Some of these engorged veins do not exhibit color Doppler fill in which may be attributable to slow flow within the varicocele or varicocele thrombosis. Recommend correlation for any tenderness/soft tissue nodularity in this area. - Otherwise unremarkable testicular ultrasound. There is no sonographic evidence of active testicular torsion. Ordering provider has been paged with these findings at 2:18 PM on 07/24/2017. DICTATED BY: Lan Sanchez MD DATE/TIME DICTATED:07/24/171410 LICENSED OPTICIAN:OFE DATE/TIME TRANSCRIBED:07/24/171410 CONFIDENTIAL, DO NOT COPY WITHOUT APPROPRIATE AUTHORIZATION. <Electronically signed in Other Vendor System> SIGNED BY: Lan Sanchez MD 07/24/17 1423, PATIENT: JOSE TUBBS PRESENT AGE: 31 PATIENT ACCOUNT NO: [id number] : 86 LOCATION: [facility] ORDERING PHYSICIAN: Isai JORDAN SERVICE DATE: 07/24/17 EXAM TYPE : CAT - CT PELVIS WO IV CONTRAST EXAMINATION: CT PELVIS WITHOUT CONTRAST CLINICAL INFORMATION: Lower abdominal pain. Recent trauma. Rule out trauma. COMPARISON: 07/03/2017 TECHNIQUE: Helical scanning was performed with submillimeter collimation through the pelvis. Sagittal and coronal multiplanar 2 -D reconstructions were obtained. DLP: 1377 mGy-cm FINDINGS: PELVIS: Intrapelvic soft tissues are normal in appearance. The lower abdominal wall appears intact without herniation. A tortuous subcutaneous varicose vein is again noted in the left inguinal region, unchanged from prior. Bladder and prostate are unremarkable. Musculature is normal in appearance. OSSEOUS STRUCTURES: There is mild osteoarthritis in both SI joints with marginal osteophytes and subarticular sclerosis. Mild osteoarthritis is also present in the hips with small marginal osteophytes and foci of subarticular cystic change. Joint spaces appear well- preserved. The lumbar spine and sacrum are intact. There is mild facet arthropathy at L4-L5 and L5-S1. IMPRESSION: 1. No acute abnormalities in the pelvis 2. Mild osteoarthritis in the hips and SI joints. 3. Unchanged tortuous varicose vein in the left inguinal region extending to the scrotum. DICTATED BY: Jean Zuniga MD DATE/TIME DICTATED:07/24/171331 LICENSED OPTICIAN:OFE DATE/TIME TRANSCRIBED:07/24/171331 CONFIDENTIAL, DO NOT COPY WITHOUT APPROPRIATE AUTHORIZATION. <Electronically signed in Other Vendor System> SIGNED BY: Jean Zuniga MD 07/24/17 1343 Initial ED EKG: normal sinus rhythm, rate (106), nonspecific ST T wave chg, BORDERLINE Q WAVES Comments: 07/24/2017 10:24:16 PM Spoke with the patient on the phone after he was discharged. I explained to him that I wanted him to follow-up with a tube coverer for his syncopal episodes. I explained to him his EKG is slightly abnormal. Troponin was added on and it was negative. He did not have any chest pain or shortness of breath. Is primarily here for his issue with pain in his testicle region and groin area. Etiology of syncope was unclear. Patient was given the information over the phone for Dr. Kaye. Told to follow-up and call make an appointment. Patient was told if he has another syncopal episodes return to the emergency room. I spoke with Dr. Tubbs in regards to the ultrasound findings. He can follow-up in the office with her. Patient was started on ciprofloxacin. Return if any other concerns. Understands and agrees with plan of care. His pain improved after the Percocet here in the emergency room. ([place] JORDAN,Isai) Departure Departure Disposition: HOME OR SELF CARE Condition: Stable Clinical Impression Primary Impression: Left varicocele Referrals: Holly Tubbs MD Patient Has No Primary Care Dr (PCP/Family) Additional Instructions: You have a potentially thrombosed varicocele on the left side. F/U up with urologist. Take ciprofloxacin and Percocet for pain. Take ibuprofen. Return if any other concerns. Please go over all results of today's visit with your primary care doctor. Contact your primary care doctor to let them know you were here in the emergency room. There may be nonspecific findings which may not be related to your visit today here in the emergency room but may require further evaluation and chronic monitoring by your primary care doctor. If you had a laceration today the chance of foreign body always remains. You should follow-up with your primary care doctor for recheck in 3-5 days for a wound check. If you had an x-ray done there is a chance that a fracture could have been missed on initial read and you should follow-up with your primary care doctor for repeat x-rays if symptoms persist. If your blood pressure was elevated here in the emergency room please have rechecked by [facility] primary care doctor within the next 48. If you were prescribed a narcotic here in the emergency room or any type of controlled substances you're not allowed to drive while taking this medication or operate any type of heavy machinery. Narcotics can make you feel lightheaded dizziness nausea and can cause constipation. You may need to hand picker a stool softener. Thank you for choosing [facility] emergency room. Please return to the emergency room immediately if you have any other concerns worsening of symptoms. Departure Forms: Customer Survey General Discharge Information Prescriptions: Current Visit Scripts Ibuprofen 1 TAB PO TID #30 TAB Ciprofloxacin HCl (Cipro) 1 TAB PO BID #20 TAB Promethazine HCl 1 TAB PO Q6P PRN NAUSEA #30 TAB Oxycodone HCl/Acetaminophen (Percocet 5-325 MG Tablet) 1 TAB PO BID PRN PAIN #10 TAB (Isai Morrison) PA/LICENSED CHEMICAL SPRAY TECHNICIAN Co-Sign Statement Statement: ED Attending supervision documentation- I saw and evaluated the patient. I have also reviewed all the pertinent lab results and diagnostic results. I agree with the findings and the plan of care as documented in the PA's/LICENSED CHEMICAL SPRAY TECHNICIAN's documentation. x I have reviewed the ED Record and agree with the PA's/LICENSED CHEMICAL SPRAY TECHNICIAN's documentation. [] Additions or exceptions (if any) to the PAs/LICENSED CHEMICAL SPRAY TECHNICIAN's note and plan are summarized below: [] (Madhuri WILSON,Maurice)
[2017-07-24 12:53] LABS: ABSOLUTE BASOPHIL COUNT 0.1 /CUMM (0.0-0.2); ABSOLUTE EOSINOPHIL COUNT 0.1 /CUMM (0.0-0.7); ABSOLUTE GRANULOCYTE CT 8.5 /CUMM (1.4-6.5); ABSOLUTE LYMPH COUNT 2.9 /CUMM (1.2-3.4); BASOPHIL % 0.8 % (0.0-2.0); GRANULOCYTE % 67.6 % (42.2-75.2); HEMATOCRIT 44.6 % (42-52); MEAN CORPUSCULAR HGB 28.8 PG (27.0-31.0); MEAN CORPUSCULAR VOLUME 84.7 FL (80.0-94.0); MEAN PLATELET VOLUME 8.8 FL (7.4-10.4); PLATELET COUNT 232 /CUMM (130-400); RED BLOOD CELL CT 5.26 /CUMM (4.70-6.10); WHITE BLOOD CELL COUNT 12.6 /CUMM (4.8-10.8)
--- NOTE | 2017-07-24 13:43 | CT SCAN REPORT ---
EXAMINATION: CT PELVIS WITHOUT CONTRAST CLINICAL INFORMATION: Lower abdominal pain. Recent trauma. Rule out trauma. COMPARISON: 07/03/2017 TECHNIQUE: Helical scanning was performed with submillimeter collimation through the pelvis. Sagittal and coronal multiplanar 2-D reconstructions were obtained. DLP: 1377 mGy-cm FINDINGS: PELVIS: Intrapelvic soft tissues are normal in appearance. The lower abdominal wall appears intact without herniation. A tortuous subcutaneous varicose vein is again noted in the left inguinal region, unchanged from prior. Bladder and prostate are unremarkable. Musculature is normal in appearance. OSSEOUS STRUCTURES: There is mild osteoarthritis in both SI joints with marginal osteophytes and subarticular sclerosis. Mild osteoarthritis is also present in the hips with small marginal osteophytes and foci of subarticular cystic change. Joint spaces appear well-preserved. The lumbar spine and sacrum are intact. There is mild facet arthropathy at L4-L5 and L5-S1. IMPRESSION: 1. No acute abnormalities in the pelvis 2. Mild osteoarthritis in the hips and SI joints. 3. Unchanged tortuous varicose vein in the left inguinal region extending to the scrotum.
--- NOTE | 2017-07-24 14:23 | ULTRASOUND REPORT ---
US SCROTUM CLINICAL INFORMATION: Testicle pain. COMPARISON: Pelvic CT the same day TECHNIQUE: A sonogram of the scrotum was performed assessing chu-scale appearance and color Doppler flow. Spectral analysis and Doppler interrogation was performed. FINDINGS: RIGHT: Right testicle measures 3.6 x 2.3 x 3.5 cm, volume 20.6 mL. Parenchymal echotexture is normal. No focal testicular parenchymal lesions are visualized. Normal symmetric intratesticular flow is visualized. Normal arterial and venous waveforms. Right epididymal head is normal in size. No right hydrocele or varicocele is seen. LEFT: Left testicle measures 3.3 x 2.2 x 3.2 cm, volume 16.5 mL. Parenchymal echotexture is normal. No focal testicular parenchymal lesions are visualized. Normal symmetric intratesticular flow is visualized. Normal arterial and venous waveforms. Left epididymal head is normal in size. Left-sided varicocele. Some of these engorged veins do not exhibit color Doppler fill in which may be attributable to slow flow within the varicocele or varicocele thrombosis. Recommend correlation for any tenderness/soft tissue nodularity in this area. No hydrocele. IMPRESSION: - Left-sided varicocele. Some of these engorged veins do not exhibit color Doppler fill in which may be attributable to slow flow within the varicocele or varicocele thrombosis. Recommend correlation for any tenderness/soft tissue nodularity in this area. - Otherwise unremarkable testicular ultrasound. There is no sonographic evidence of active testicular torsion. Ordering provider has been paged with these findings at 2:18 PM on 07/24/2017.
[2017-07-24 14:39] VITALS: BP 114/69
[2017-07-24] MEDS ORDERED: IBUPROFEN800 M1 PO (14:41)
[2017-07-24] MEDS ORDERED: PERCOCET 5-3251 EACH PO ×3 (14:41→15:09)
[2017-07-24] MEDS ORDERED: CIPRO500 M1 PO (14:41)
[2017-07-24] MEDS ORDERED: PROMETHAZINE HC25 M3 PO (18:57)
[2017-07-28] MEDS ORDERED: PERCOCET 5-3251 EACH PO (21:37)
== END 2017-07-24 15:13 ==
LOC: ERH 11:17
PROVIDERS: Physician Assistant Medical
DX: I86.1 Scrotal varices (principal)
CPT/HCPCS: 81001; 93005; 93010; 96372; J1885

== ENCOUNTER 2017-08-05 00:11 | Emergency (ER) | payer OTHER ==
[~2017-08-05] VITALS: Ht 180.3 cm; Wt 130.6 kg
[~2017-08-05 00:11] MED LIST changes: +CIPRO500 M1 PO
--- NOTE | 2017-08-05 00:39 | ED CARDIAC/CP/PALPITATIONS ---
History of Present Illness General Chief Complaint: Chest Pain Stated Complaint: "CHEST PAIN UM DR ERICKSON TOLD ME TO COME IN" Source: patient Exam Limitations: no limitations Vital Signs & Intake/Output Vital Signs & Intake/Output Vital Signs Date Time Temp Pulse Resp B/P B/P Pulse O2 O2 Flow FiO2 Mean Ox Delivery Rate 08/05 0447 97.8 86 18 106/56 98 Room Air 08/05 0301 97.8 74 18 122/68 96 Room Air 08/05 0055 97.3 85 18 122/63 97 Room Air Allergies Coded Allergies: ondansetron (From ZOFRAN ( HYDROCHLORIDE)) (Mild, HIVES 08/05/17) Reconcile Medications Ciprofloxacin HCl (Cipro) 500 MG TABLET 1 TAB PO BID VARICOCELE Clonazepam (Klonopin) 1 MG TABLET 1 TAB PO BIDP PRN ANXIETY Clotrimazole/Betamethasone Dip (Clotrimazole-Betamethasone Crm) 1 %-0.05 % CREAM..G. 1 DENILSON TOP BID balanitis apply to affected area(s) Dextroamphetamine/Amphetamine (Adderall 10 MG Tablet) 10 MG TABLET 1 TAB PO TID ADHD (Reported) Diazepam (Valium) 10 MG TABLET 1 TAB PO BIDP PRN ANXIETY (Reported) Gabapentin 300 MG CAPSULE 1 CAP PO TID PRN ANXIETY Ibuprofen 800 MG TABLET 1 TAB PO TID PAIN Ibuprofen 800 MG TABLET 1 TAB PO TID PRN pain Oxycodone HCl/Acetaminophen (Percocet 5-325 MG Tablet) 5 MG-325 MG TABLET 1 TAB PO BID PRN pain Oxycodone HCl/Acetaminophen (Percocet 5-325 MG Tablet) 5 MG-325 MG TABLET 1 TAB PO BID PRN PAIN Oxycodone HCl/Acetaminophen (Percocet 5-325 MG Tablet) 5 MG-325 MG TABLET 1-2 TAB PO Q6P PRN PAIN Promethazine HCl 25 MG TABLET 1 TAB PO Q6P PRN NAUSEA Sertraline HCl (Zoloft) 100 MG TABLET 1 TAB PO DAILY PTSD (Reported) Tamsulosin HCl (Flomax) 0.4 MG CAP.ER.24H 1 CAP PO DAILY prostatitis Triage Note: TRIAGE: PATIENT TO ER FROM HOME REPORTING MID CHEST SHARP ACHING PAIN X 2 HOURS W/ +SOB AND DIZZINESS. SEEN HERE MULTIPLE TIMES IN LAST 2 MONTHS FOR SAME. HX ANXIETY. PATIENT DENIES N/V. REPORTS HE SEES MD ERICKSON. Triage Nurses Notes Reviewed? yes Onset: Abrupt Duration: hour(s): Timing: recent history Quality/Severity: moderate Location: central Radiation: no radiation Activities at Onset: emotional stress, argument with Prior Chest Pain/Card Workup: non-cardiac HPI: 31-year-old gentleman presents with two-hour history of substernal chest pressure and increased anxiety. He states that he got into an argument with his . He suddenly felt central chest pressure and increased anxiety. This is similar to his prior episodes. He is been evaluated by Dr. erickson in the past and has been scheduled for a stress test tomorrow. He notes the discomfort is 9 out of 10. It does not radiate. He has no syncopal symptoms or diaphoresis. He is otherwise well and has no other concerns. Past History Travel History Traveled to [place] past 21 day No Medical History Any Pertinent Medical History? 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 No Review of Systems Review of Systems Constitutional: Reports: no symptoms. EENTM: Reports: no symptoms. Respiratory: Reports: no symptoms. Cardiovascular: Reports: no symptoms. GI: Reports: no symptoms. Genitourinary: Reports: no symptoms. Musculoskeletal: Reports: no symptoms. Skin: Reports: no symptoms. Neurological/Psychological: Reports: no symptoms. Hematologic/Endocrine: Reports: no symptoms. Immunologic/Allergic: Reports: no symptoms. All Other Systems: Reviewed and Negative Physical Exam Physical Exam Cardiovascular: Parasternal chest wall tenderness to palpation Comments: Review of Systems - except as otherwise noted in HPI Physical Exam Physical Exam General Appearance: well developed/nourished, no apparent distress Head: atraumatic, normal appearance Eyes: Bilateral: normal appearance. Ears, Nose, Throat: normal pharynx, normal ENT inspection Neck: normal inspection, supple, full range of motion Respiratory: normal breath sounds, parasternal chest wall tenderness to palpation, no respiratory distress, quiet respiration, lungs clear Cardiovascular: regular rate/rhythm Gastrointestinal: normal bowel sounds, soft, non-tender, no organomegaly Back: normal inspection, normal range of motion Extremities: normal inspection, normal capillary refill, normal range of motion, no edema Neurologic/Psych: no motor/sensory deficits, awake, alert, oriented x 3 Skin: intact, normal color, warm/dry Core Measures ACS in differential dx? No CVA/TIA Diagnosis No Sepsis Present: No Sepsis Focused Exam Completed? No Progress Differential Diagnosis: AMI, musculoskeletal pain, unstable angina, PANIC/ ANXIETY Plan of Care: Orders Procedure Date/time Status TROPONIN LEVEL 08/05 299 Complete EKG 08/05 299 Active TROPONIN LEVEL 08/05 28 Complete LIPASE 08/05 28 Complete HEPATIC FUNCTION PANEL 08/05 28 Complete D-DIMER 08/05 28 Complete CBC WITHOUT DIFFERENTIAL 08/05 28 Complete BASIC METABOLIC PANEL 08/05 28 Complete AMYLASE 08/05 28 Complete EKG 08/054 Active Laboratory Tests 08/05/17 0259: Troponin I < 0.01 08/05/17 0046: Anion Gap 11, Estimated GFR > 60, BUN/Creatinine Ratio 10.0, Glucose 91, Calcium 9.1, Total Bilirubin 0.3, Direct Bilirubin 0.2, AST 25, ALT 35, Alkaline Phosphatase 69, Troponin I < 0.01, Total Protein 6.3, Albumin 3.6, Amylase 45, Lipase 39, D-Dimer High Sensitivty 237, CBC w Diff NO MAN DIFF REQ, RBC 4.85, MCV 84.3, MCH 28.6, MCHC 33.9, RDW 14.6 H, MPV 9.2, Gran % 66.0, Lymphocytes % 23.2, Monocytes % 5.6, Eosinophils % 4.1, Basophils % 1.1, Absolute Granulocytes 7.5 H, Absolute Lymphocytes 2.6, Absolute Monocytes 0.6, Absolute Eosinophils 0.5, Absolute Basophils 0.1 Diagnostic Imaging: Viewed by Me: Radiology Read. Discussed w/RAD: Radiology Read. CXR Impression: PATIENT: JOSE TUBBS PRESENT AGE: 31 PATIENT ACCOUNT NO: [id number] : 86 LOCATION: [facility] ORDERING PHYSICIAN: Juancarlos Vang MD SERVICE DATE: 08/05/17 EXAM TYPE: RAD - XRY-PORTABLE CHEST XRAY EXAMINATION: XR PORTABLE CHEST CLINICAL INFORMATION: Chest pain COMPARISON: 07/28/2017 TECHNIQUE: Portable frontal view of the chest was obtained. FINDINGS: The left costophrenic angle is not fully included on this study. The lungs are well expanded. There is no consolidation, edema, or effusion. No pneumothorax. The cardiomediastinal silhouette is within normal limits. No acute osseous abnormality. IMPRESSION: No acute pulmonary findings. DICTATED BY: Opal WILSON,Goldy DATE/TIME DICTATED:08/05/17156 MACHINE DESIGNER:OFE DATE/TIME TRANSCRIBED:08/05/17156 CONFIDENTIAL, DO NOT COPY WITHOUT APPROPRIATE AUTHORIZATION. <Electronically signed in Other Vendor System> SIGNED BY: Opal WILSON,Goldy 08/05/17 0201 Initial ED EKG: normal sinus rhythm no acute changes Repeat EKG: unchanged Departure Departure Disposition: HOME OR SELF CARE Condition: Stable Clinical Impression Primary Impression: Chest pain Referrals: Patient Has No Primary Care Dr (PCP/Family) Departure Forms: Customer Survey General Discharge Information Comments 08/05/17, 5am.. pt feels well in ED, chest pain free in ED... ekg/trop negative x 2, other labs benign, safe for discharge with follow up by cards tomorrow (he has appt). Critical Care Note Critical Care Note Critical Care Time: non-applicable
[2017-08-05 00:59] LABS: ABSOLUTE BASOPHIL COUNT 0.1 /CUMM (0.0-0.2); ABSOLUTE EOSINOPHIL COUNT 0.5 /CUMM (0.0-0.7); ABSOLUTE GRANULOCYTE CT 7.5 /CUMM (1.4-6.5); ABSOLUTE LYMPH COUNT 2.6 /CUMM (1.2-3.4); ABSOLUTE MONOCYTE COUNT 0.6 /CUMM (0.10-0.60); BASOPHIL % 1.1 % (0.0-2.0); EOSINOPHIL % 4.1 % (0-5); HEMATOCRIT 40.9 % (42-52); MEAN CORPUSCULAR HGB 28.6 PG (27.0-31.0); MEAN CORPUSCULAR HGB CONC 33.9 G/DL (33.0-37.0); MEAN CORPUSCULAR VOLUME 84.3 FL (80.0-94.0); MEAN PLATELET VOLUME 9.2 FL (7.4-10.4); PLATELET COUNT 214 /CUMM (130-400); RBC DISTRIBUTION WIDTH 14.6 % (11.5-14.5); RED BLOOD CELL CT 4.85 /CUMM (4.70-6.10); WHITE BLOOD CELL COUNT 11.4 /CUMM (4.8-10.8)
--- NOTE | 2017-08-05 02:01 | RADIOLOGY REPORT ---
EXAMINATION: XR PORTABLE CHEST CLINICAL INFORMATION: Chest pain COMPARISON: 07/28/2017 TECHNIQUE: Portable frontal view of the chest was obtained. FINDINGS: The left costophrenic angle is not fully included on this study. The lungs are well expanded. There is no consolidation, edema, or effusion. No pneumothorax. The cardiomediastinal silhouette is within normal limits. No acute osseous abnormality. IMPRESSION: No acute pulmonary findings.
[2017-08-05 04:47] VITALS: BP 106/56
== END 2017-08-05 04:49 ==
LOC: ERH 00:11
PROVIDERS: Pediatrics
DX: R07.2 Precordial pain (principal)
CPT/HCPCS: 71045; 93005; 93010; 96372; J1885

== ENCOUNTER 2017-09-28 13:18 | Emergency (ER) | payer OTHER ==
[~2017-09-28] VITALS: Ht 180.3 cm; Wt 127.0 kg
[~2017-09-28 13:18] MED LIST changes: +ADVIL LIQUI-GE200 M1 PO; +ATIVAN1 M1 PO; +BUTALB-ACETAMI1 EACH PO; +ENDOCET 5-3251 EACH PO; +REGLAN10 M1 PO
--- NOTE | 2017-09-28 13:32 | ED GI/GU/ABDOMINAL COMPLAINT ---
History of Present Illness General Chief Complaint: General Adult Stated Complaint: PT STATES "IM HAVING PROSTITIS PAIN AGAIN" Source: patient, family, old records Exam Limitations: no limitations Vital Signs & Intake/Output Vital Signs & Intake/Output Vital Signs Date Time Temp Pulse Resp B/P B/P Pulse O2 O2 Flow FiO2 Mean Ox Delivery Rate 09/28 1415 98.7 88 20 122/74 100 Room Air 09/28 1323 98.9 91 18 117/85 97 Room Air Allergies Coded Allergies: ondansetron (From ZOFRAN ( HYDROCHLORIDE)) (Mild, ANXIETY, RESTLESS LEGS 09/25) Reconcile Medications Albuterol Sulfate (Proair Hfa) 90 MCG HFA.AER.AD 2 PUF INH AD PRN ASTHMA ( Reported) Ibuprofen (Advil Liqui-Gels) 200 MG CAPSULE 3 CAP PO PRN PAIN/INFLAMMATION ( Reported) LORazepam (Ativan) 1 MG TAB 1 TAB PO BID PRN DIZZY Meclizine HCl 25 MG TABLET 1 TAB PO TIDPRN PRN DIZZINESS (Reported) Metoclopramide HCl (Reglan) 10 MG TABLET 1 TAB PO 4 TIMES/DAY PRN NAUSEA 30 minutes before meals and bedtime Oxycodone HCl/Acetaminophen (Percocet 5-325 MG Tablet) 5 MG-325 MG TABLET 1-2 TAB PO Q6P PRN PAIN Triage Note: PT STATES HE IS HAVING PROSTITIS PAIN AGAIN. PT STATES DR. TUBBS SENT HIM TO PAIN MANAGEMENT FOR THIS BUT THEY DO NOT EXCEPT HIS INSURANCE. Triage Nurses Notes Reviewed? yes HPI: Vision presents complaining of pain to his suprapubic area. Similar symptoms in the past when he has had prostatitis varicocele. The pain is aching and throbbing in nature. The pain is 10 out of 10. Patient states that Dr. Tubbs told him to go to pain management however pain management does not accept his insurance. The pain is constant. There are no aggravating or mitigating factors. The pain began with a gradual onset 4 days ago and then intensified today. There is no radiation. Past History Travel History Traveled to [place] past 21 day No Medical History Any Pertinent Medical History? 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 No Review of Systems Review of Systems Constitutional: Reports: no symptoms. EENTM: Reports: no symptoms. Respiratory: Reports: no symptoms. Cardiovascular: Reports: no symptoms. GI: Reports: no symptoms. Genitourinary: Reports: see HPI. Musculoskeletal: Reports: no symptoms. Skin: Reports: no symptoms. Neurological/Psychological: Reports: see HPI. Hematologic/Endocrine: Reports: no symptoms. Immunologic/Allergic: Reports: no symptoms. All Other Systems: Reviewed and Negative Physical Exam Physical Exam General Appearance: well developed/nourished, alert, awake, anxious, mild distress Head: atraumatic, normal appearance Eyes: Bilateral: PERRL, EOMI, other (NO NYSTAGMUS). Ears, Nose, Throat, Mouth: hearing grossly normal, moist mucous membrane Neck: normal inspection, supple, full range of motion Respiratory: normal breath sounds, chest non-tender, no respiratory distress, lungs clear Cardiovascular: regular rate/rhythm, normal peripheral pulses Gastrointestinal: normal bowel sounds, soft, non-tender, no organomegaly Back: normal inspection, normal range of motion, NO CVA TENDERNSS Extremities: normal range of motion Neurologic/Psych: no motor/sensory deficits, awake, alert, oriented x 3, normal gait, normal mood/affect Skin: intact, normal color, warm/dry Core Measures ACS in differential dx? No Sepsis Present: No Sepsis Focused Exam Completed? No Progress Differential Diagnosis: UTI/pyelo, PROSTATITIS Plan of Care: Orders Procedure Date/time Status URINALYSIS 09/28 1325 Complete Laboratory Tests 09/28/17 1345: Urine Color YEL, Urine Clarity CLEAR, Urine pH 7.0, Ur Specific [place] 1.015, Urine Protein NEG, Urine Ketones NEG, Urine Nitrite NEG, Urine Bilirubin NEG, Urine Urobilinogen 0.2, Ur Leukocyte Esterase NEG, Ur Microscopic SEDIMENT EXAMINED, Urine RBC 1-3, Ur Epithelial Cells RARE, Urine Mucus FEW, Urine Hemoglobin TRACE-INTACT H, Urine Glucose NEG Initial ED EKG: none Departure Departure Disposition: HOME OR SELF CARE Condition: Stable Clinical Impression Primary Impression: Suprapubic pain Referrals: Allyson WILSON,Ryley Li Patient Has No Primary Care Dr (PCP/Family) Additional Instructions: FOLLOW UP WITH DR. TUBBS FIR THE PAIN IN YOUR SUPRAPUBIC AREA FOLLOW UP WITH DR. TESFAYE FOR THEDIZZINESS RETURN FOR ANY CONCERNS Departure Forms: Customer Survey General Discharge Information Prescriptions: Current Visit Scripts Oxycodone HCl/Acetaminophen (Percocet 5-325 MG Tablet) 1-2 TAB PO Q6P PRN PAIN #16 TAB
[2017-09-28] MEDS ORDERED: MECLIZINE HCL25 MG PO (13:42)
[2017-09-28] MEDS ORDERED: PROAIR HFA8.5 GM INH (13:42)
[2017-09-28] MEDS ORDERED: PERCOCET 5-3251 EACH PO (14:14)
[2017-09-28 14:15] VITALS: BP 122/74
== END 2017-09-28 14:18 ==
LOC: ERH 13:18
DX: R10.2 Pelvic and perineal pain (principal)
CPT/HCPCS: 81001